=== PATIENT | male | born 1950 | race Caucasian/White ===

== ENCOUNTER 2019-04-03 07:50 | Outpatient (CLI) | payer MEDICARE ==
[~2019-04-03 07:50] MED LIST: ASPI81TA45 PO; ATOR40TA78 PO; CARV6.2512 PO; CLOP75TA PO; GUAI120L37 PO; IBUP-1222 PO; LISI5TAB7 PO; NITR0.4T28 SL
== END 2019-04-03 23:59 | disposition home or self-care (01) ==
LOC: RAD 07:50
PROVIDERS: ATTEND Internal Medicine
DX: I21.9 Acute myocardial infarction, unspecified (principal); I25.10 Atherosclerotic heart disease of native coronary artery without angina pectoris
CPT/HCPCS: 78466; A9505

== ENCOUNTER 2019-04-17 11:34 | Observation (INO) | payer MEDICARE ==
[~2019-04-17] VITALS: Ht 182.9 cm; Wt 68.2 kg
[2019-04-17] MEDS: SODIUM CHLORIDE 0.9% 1,000 ML IV SCH ×2 (12:11→20:01)
[2019-04-17 12:17] VITALS: BP 129/73
[2019-04-17] MEDS ORDERED: PLEASE ENTER HEIGHT AND WEIGHT MC SCH (12:30)
[2019-04-17] MEDS ORDERED: CEFAZOLIN PMX 1GM/50ML 50 ML IVPB ONE (12:30)
[2019-04-17] MEDS ORDERED: CEFAZOLIN 1,000 MG ONE (12:59)
[2019-04-17] MEDS ORDERED: CEFAZOLIN PMX 1GM/50ML 50 ML ONE (12:59)
[2019-04-17] MEDS ORDERED: FENTANYL PF 100 MCG/2ML ONE (12:59)
[2019-04-17] MEDS ORDERED: MIDAZOLAM 1 MG/ML, 5ML ONE (12:59)
[2019-04-17] MEDS ORDERED: LIDOCAINE 2%, 20ML ONE (12:59)
[2019-04-17 15:55] VITALS: BP 127/82
[2019-04-17] MEDS ORDERED: NITROGLYCERIN SINGLE TAB 0.4 MG SL PRN (16:00)
[2019-04-17] MEDS ORDERED: ACETAMINOPHEN 325 MG TABLET PO PRN (16:00)
[2019-04-17] MEDS: HYDROcodone/APAP 5/325 TABLET PO PRN ×2 (16:18→20:01)
[2019-04-17 16:25] VITALS: BP 118/83
[2019-04-17 17:52] VITALS: BP 114/82
[2019-04-17] MEDS: CARVEDILOL 6.25 MG TABLET PO SCH (17:52)
[2019-04-17 19:55] VITALS: BP 106/65
[2019-04-17] MEDS: CEFAZOLIN PMX 1GM/50ML 50 ML IVPB SCH (20:01)
[2019-04-17] MEDS ORDERED: ATORVASTATIN 40 MG TABLET PO SCH (21:00)
[2019-04-18] MEDS: HYDROcodone/APAP 5/325 TABLET PO PRN (01:52)
[2019-04-18 02:00] VITALS: BP 114/69
[2019-04-18] MEDS: SODIUM CHLORIDE 0.9% 1,000 ML IV SCH (04:11)
[2019-04-18] MEDS: CEFAZOLIN PMX 1GM/50ML 50 ML IVPB SCH ×2 (05:33→11:19)
[2019-04-18] MEDS: CARVEDILOL 6.25 MG TABLET PO SCH (05:54)
[2019-04-18] MEDS ORDERED: ASPIRIN 81 MG TABLET EC PO SCH (06:00)
[2019-04-18 06:53] VITALS: BP 100/63
[2019-04-18] MEDS ORDERED: CLOPIDOGREL 75 MG TABLET PO SCH (09:00)
[2019-04-18] MEDS ORDERED: LISINOPRIL 5 MG TABLET PO SCH (09:00)
== END 2019-04-18 12:30 | disposition home or self-care (01) ==
LOC: CACL 11:34 → 5SO 15:35 → CACL 15:35 → 5SO 15:44 → DCLOUNGE 04-18 12:15
PROVIDERS: ADMIT Internal Medicine Cardiovascular Disease; ATTEND Internal Medicine Cardiovascular Disease
DX: I25.10 Atherosclerotic heart disease of native coronary artery without angina pectoris (principal); I25.5 Ischemic cardiomyopathy; I25.9 Chronic ischemic heart disease, unspecified; I47.2 Ventricular tachycardia; E78.2 Mixed hyperlipidemia; I25.2 Old myocardial infarction; E78.5 Hyperlipidemia, unspecified; Z79.82 Long term (current) use of aspirin; Z79.01 Long term (current) use of anticoagulants
CPT/HCPCS: 33249; 36005; 71045; 93005; 96365; 96366; 99156; 99157; C1721; C1779; C1892; C1895; G0378; J0690; J2250; J3010; J3490; Q9967

== ENCOUNTER → 2020-03-15 | Outpatient (CLI) | payer MEDICARE | END | disposition home or self-care (01) | LOC: CFH 14:00 | PROVIDERS: ATTEND Internal Medicine Cardiovascular Disease | DX: I05.1 Rheumatic mitral insufficiency (principal); I05.8 Other rheumatic mitral valve diseases; I25.2 Old myocardial infarction; E78.5 Hyperlipidemia, unspecified; I25.10 Atherosclerotic heart disease of native coronary artery without angina pectoris; I47.2 Ventricular tachycardia | CPT/HCPCS: 93306 ==